=== PATIENT | female | born 1960 | race Caucasian/White ===

== ENCOUNTER 2019-05-09 09:55 | Outpatient (CLI) | payer MEDICARE, SELFPAY ==
[2019-05-09 10:53] LABS: Hemoglobin A1C 6.2 % (<5.7)
== END 2019-05-09 09:56 | disposition home or self-care (01) ==
LOC: CHSLAB 09:59
PROVIDERS: PCP Family Medicine; Visit Provider Family Medicine
DX: E11.9 Type 2 diabetes mellitus without complications (principal)
CPT/HCPCS: 36415; 83036

== ENCOUNTER 2020-07-04 11:05 | Outpatient (CLI) | payer MEDICARE, SELFPAY ==
[2020-07-04 11:20] LABS: Hematocrit 43.1 % (35.0-49.0); Hemoglobin 14.6 g/dL (12.0-15.0); Mean Corpuscular HGB Conc 33.9 g/dL (32.0-36.0); Mean Corpuscular Hemoglobin 33.1 pg (27.0-31.0); Mean Corpuscular Volume 97.7 fL (78.0-102.0); Mean Platelet Volume 9.1 fl (9.2-11.8); Platelet Count Result 262 K/mm3 (150-420); Red Blood Count 4.41 M/mm3 (4.20-5.40); Red Cell Distribution Width 13.4 % (11.6-14.4); White Blood Count 6.7 K/mm3 (4.8-10.8)
[2020-07-04 11:34] LABS: Creatinine Urine 60.19 mg/dL (40-278); MALB Creatinine Ratio 21.5 mg/g (0-30); Microalbumin Urine Random < 13.0 mg/L
[2020-07-04 12:37] LABS: Alanine Aminotransferase 34 U/L (14-59); Albumin Level 3.4 g/dL (3.4-5.0); Alkaline Phosphatase 77 U/L (46-116); Anion Gap 6 mmol/L (8-16); Aspartate Amino Transferase 19 U/L (15-37); Bilirubin,Total 0.4 mg/dL (0.00-1.00); Blood Urea Nitrogen 13 mg/dL (7-18); Calcium 9.2 mg/dL (8.5-10.1); Carbon Dioxide 32 mmol/L (21-32); Chloride 102 mmol/L (98-108); Cholesterol 182 mg/dL (0-200); Estimated Glomerular Filt Rate > 60; Glucose 123 mg/dL (70-99); HDL Direct 45 mg/dL (40-60); LDL Cholesterol Calculated 63 mg/dL (<130); Osmolality Calculated 291 mOsm/kg (285-295); Potassium 4.1 mmol/L (3.5-5.1); Sodium 140 mmol/L (136-145); Total Protein 6.8 g/dL (6.4-8.2); Triglycerides 370 mg/dL (0-150)
== END 2020-07-04 11:06 | disposition home or self-care (01) ==
LOC: CHSLAB 11:11
PROVIDERS: PCP Family Medicine; Visit Provider Family Medicine
DX: E11.9 Type 2 diabetes mellitus without complications (principal)
CPT/HCPCS: 36415; 80053; 80061; 82043; 83036; 85027

== ENCOUNTER 2021-01-08 11:19 | Outpatient (CLI) | payer MEDICARE, SELFPAY ==
--- NOTE | ~2021-01-08 | XR_ITS ---
EXAMINATION: XR humerus RT INDICATION: Right arm pain TECHNIQUE: Two views of the right humerus are obtained. COMPARISON: None available FINDINGS: There appears to be marked soft tissue swelling of the lateral arm (unclear if this is asym metric compared to the left). Bone alignment is normal. There is no fracture. There is advanced osteo arthritis of the acromioclavicular joint. The elbow appears normal. IMPRESSION: 1. Possible soft tissue swelling of the lateral arm (recommend comparison to the left) without acute osseous abnormality. Reviewed, dictated and finalized at location B. COMPILER IMPRESSION: 1. Possible soft tissue swelling of the lateral arm (recommend comparison to th e left) without acute osseous abnormality.
[2021-01-08 11:37] LABS: Basophils Absolute Auto 0.03 K/mm3 (0.00-0.10); Basophils Percent Auto 0.4 % (0.0-1.0); Eosinophils Absolute Auto 0.43 K/mm3 (0.02-0.50); Eosinophils Percent Auto 5.8 % (1.0-6.0); Hematocrit 45.6 % (35.0-49.0); Hemoglobin 15.8 g/dL (12.0-15.0); Immature Granulocyte Absolute 0.02 K/mm3 (0.00-0.00); Immature Granulocyte Percent A 0.3 % (0.0-0.0); Lymphocytes Percent Auto 29.7 % (18.0-42.0); Mean Corpuscular HGB Conc 34.6 g/dL (32.0-36.0); Mean Corpuscular Hemoglobin 33.3 pg (27.0-31.0); Mean Corpuscular Volume 96.2 fL (78.0-102.0); Monocytes Absolute Auto 0.49 K/mm3 (0.10-0.90); Monocytes Percent Auto 6.6 % (2.0-11.0); Neutrophils Absolute Auto 4.2 K/mm3 (1.7-7.2); Neutrophils Percent Auto 57.2 % (50.0-70.0); Platelet Count Result 302 K/mm3 (150-420); Red Blood Count 4.74 M/mm3 (4.20-5.40); Red Cell Distribution Width 12.9 % (11.6-14.4); White Blood Count 7.4 K/mm3 (4.8-10.8)
[2021-01-08 11:47] LABS: Hemoglobin A1C 6.4 % (<5.7)
[2021-01-08 12:06] LABS: Alanine Aminotransferase 30 U/L (14-59); Albumin Level 3.7 g/dL (3.4-5.0); Alkaline Phosphatase 86 U/L (46-116); Anion Gap 10 mmol/L (8-16); Aspartate Amino Transferase 20 U/L (15-37); Bilirubin,Total 0.4 mg/dL (0.00-1.00); Blood Urea Nitrogen 14 mg/dL (7-18); Calcium 9.6 mg/dL (8.5-10.1); Carbon Dioxide 28 mmol/L (21-32); Chloride 103 mmol/L (98-108); Estimated Glomerular Filt Rate > 60; Glucose 137 mg/dL (70-99); Osmolality Calculated 294 mOsm/kg (285-295); Potassium 3.8 mmol/L (3.5-5.1); Sodium 141 mmol/L (136-145); Total Protein 7.2 g/dL (6.4-8.2)
[2021-01-13 03:31] LABS: Vitamin D 25 Hydroxy 20 ng/mL (30-100)
== END 2021-01-08 11:20 | disposition home or self-care (01) ==
LOC: CHSIMG 11:26
PROVIDERS: PCP Family Medicine; Visit Provider Nurse Practitioner Family
DX: E55.9 Vitamin D deficiency, unspecified (principal); M79.601 Pain in right arm; E11.9 Type 2 diabetes mellitus without complications
CPT/HCPCS: 36415; 73060; 80053; 82306; 83036; 85025

== ENCOUNTER 2021-11-03 12:20 | Emergency (ER) | payer MEDICARE, SELFPAY ==
[2021-11-03 12:20] VITALS: BP 101/62; PULSE 102; RESP 16; TEMP 36.6; O2SAT 94
--- NOTE | 2021-11-03 12:37 | ED.GENADULT ---
HPI - General Adult General Chief complaint: Skin/Abscess/Foreign Body Stated complaint: Spider bite Time Seen by Provider: 11/03/21 12:27 History of Present Illness HPI narrative: Bernie presented to the ER after a spider bite last night. She pulled her shorts up and felt a painful pinch on her inner thigh. Now it has had increasing pain and erythema. She also itches all over and feels flushed. There is no SOB, wheezing, or chest pain. Related Data Home Medications Medication Instructions Recorded Confirmed olopatadine 0.7 % eye drops (Pazeo) 1 drop ophthalmic (eye) DAILY 05/09/19 11/03/21 Allergies Allergy/AdvReac Type Severity Reaction Status Date / Time aspirin Allergy Intermediate hives Verified 11/03/21 12:31 bupropion [Wellbutrin] Allergy Intermediate anxiety Verified 11/03/21 12:31 NSAIDS (Non-Steroidal AdvReac Unknown Unknown Verified 11/03/21 12:31 Anti-Inflamma Review of Systems Review of Systems: All systems reviewed & are unremarkable except as noted in HPI and below PMFSH Past Medical History Medical History (Updated 11/03/21 @ 12:43 by Chandler Downey DO) Allergic rhinitis Depression DM2 (diabetes mellitus, type 2) GERD (gastroesophageal reflux disease) Hyperlipidemia Hypertension Nicotine dependence Osteoarthritis Overweight Vitamin D deficiency Surgical History Surgical History History of adenoidectomy History of bariatric surgery Gastric Sleeve 2014 History of carpal tunnel surgery History of cholecystectomy History of hysterectomy History of left knee replacement Hx of tonsillectomy Family History Family History Other Cerebrovascular accident Depression Diabetes mellitus Family history of arthritis Family history of malignant neoplasm Hypertension Social History Social History Smoking packs per day: 0.5 Smoking cigarettes per day: 10.0 Years smoked: 30 Smoking pack-years: 15.00 Smoking status: Current every day smoker Tobacco type: cigarettes Smoking end date: 03/01/13 Exam Const: General: healthy appearing, no acute distress and alert Nutritional Appearance: well nourished Orientation/consciousness: patient oriented x3 Limitations: no limitations HENMT: Head: normal to inspection Ears: external ears normal Other: Moist mucous membranes, no swelling. Eyes: Conjunctivae: conjunctivae normal Pupils: Equal, round and reactive pupils present Neck: Neck: normal visual inspection Chest: Chest palpation & inspection: normal inspection of the chest Resp: Effort & Inspection: normal respiratory effort Auscultation: clear to auscultation bilaterally Cardio: Rate: regular rate Skin: Other: Left inner thigh had erythematous area 4cm in diameter with a black center that was warm and TTP Extrem: General: normal to inspection Psych: Mental Status: mental status grossly normal Course Course Emergency Course: given ceftriaxone and benadryl Vital Signs Vital signs: Vital Signs Temperature 97.9 F 11/03/21 12:20 Pulse Rate 102 H 11/03/21 12:20 Respiratory Rate 16 11/03/21 12:20 Blood Pressure 101/62 11/03/21 12:20 Pulse Oximetry 94 11/03/21 12:20 Oxygen Delivery Room Air 11/03/21 12:20 Temperature 97.9 F 11/03/21 12:20 Pulse Rate 102 H 11/03/21 12:20 Respiratory Rate 16 11/03/21 12:20 Blood Pressure 101/62 11/03/21 12:20 Pulse Oximetry 94 11/03/21 12:20 Oxygen Delivery Room Air 11/03/21 12:20 Medical Decision Making Vital Signs Vital Signs: Vital Signs Temperature 97.9 F 11/03/21 12:20 Pulse Rate 102 H 11/03/21 12:20 Respiratory Rate 16 11/03/21 12:20 Blood Pressure 101/62 11/03/21 12:20 Pulse Oximetry 94 11/03/21 12:20 Oxygen Delivery Room Air 11/03/21 12:20 Temperature 97.9 F
[2021-11-03] MEDS: diphenhydrAMINE HCl CAP 25 MG CAPSULE PO (12:47)
[2021-11-03] MEDS: cefTRIAXone 1 GM, LIDOCAINE HCL 1% LOCAL INJ 2.1 ML IM (12:47)
[2021-11-03 13:00] VITALS: PULSE 102; RESP 16; O2SAT 94
== END 2021-11-03 13:00 | disposition home or self-care (01) ==
PROVIDERS: Emergency Provider Family Medicine; PCP Family Medicine
DX: T63.301A Toxic effect of unspecified spider venom, accidental (unintentional), initial encounter (principal); L03.116 Cellulitis of left lower limb
CPT/HCPCS: 96372; 99283; A9270; J0696

== ENCOUNTER 2021-12-18 12:35 | Outpatient (CLI) | payer MEDICARE, MEDICAID, SELFPAY ==
--- NOTE | ~2021-12-18 | MM_ITS ---
EXAMINATION: MM screening [facility] BI w adrian HISTORY: Screening TECHNIQUE: Craniocaudal and mediolateral oblique 3-D tomosynthesis images were obtained and synthetic 2-D images were generated. CAD analysis was submitted and interpreted. COMPARISON: No prior mammogram is available for comparison at this institution. BREAST PARENCHYMAL COMPOSITION: Breast composed of scattered areas of fibroglandular density FINDINGS: There are bilateral clusters of indeterminate calcifications in the upper outer quadrant of the breasts. There is a mass in the upper outer quadrant of the right breast anteriorly measuring 12 mm. IMPRESSION: 1. Right breast mass, upper outer quadrant anteriorly. Bilateral indeterminate clustered calcificatio ns. 2. Recommend comparison to previous outside mammograms. BI-RADS Category 0: Incomplete: Needs additional imaging evaluation. Reviewed, dictated and finalized at location A. IMPRESSION: 1. Right breast mass, upper outer quadrant anteriorly. Bilateral indeterminate clustered calcifications. 2. Recommend comparison to previous outside mammograms. BI-RADS Category 0: Incomplete: Needs additional imaging evaluation.
--- NOTE | ~2021-12-18 | CT_ITS ---
EXAMINATION: CT lung screening DATE: 12/18/2021 13:07 INDICATION: Personal history of nicotine dependence, current smoker with 39 pack year history TECHNIQUE: Computed tomography (CT) of the chest was performed without intravenous contrast. The dose -length product (DLP) was 400.56 mGy-cm. Automated exposure control and iterative reconstruction tech [employer] were employed. COMPARISON: None FINDINGS: There is mild emphysema. Calcified pulmonary nodules and calcified right hilar and mediasti nal lymph nodes are consistent with old granulomatous disease. The lungs are free of acute opacities. No pleural effusion or pneumothorax. No pathologically enlarged thoracic lymph nodes are identified. The heart size is normal. Calcified coronary artery atherosclerosis is noted. There are surgical waldemar nges in the stomach. The gallbladder is surgically absent. Punctate calcifications in an otherwise no rmal spleen likely represent healed granulomatous disease. There are bridging osteophytes at multiple levels in the spine, consistent with diffuse idiopathic skeletal hyperostosis (DISH). IMPRESSION: 1. Lung-RADS category 1: Negative. Continue annual screening with noncontrast low-dose chest CT in 12 months. Reviewed, dictated and finalized at location B. IMPRESSION: 1. Lung-RADS category 1: Negative. Continue annual screening with noncontrast l ow-dose chest CT in 12 months.
== END 2021-12-18 12:36 | disposition home or self-care (01) ==
LOC: CHSIMG 12:38
PROVIDERS: PCP Family Medicine; Visit Provider Registered Nurse
DX: F17.210 Nicotine dependence, cigarettes, uncomplicated (principal); Z12.31 Encounter for screening mammogram for malignant neoplasm of breast
CPT/HCPCS: 71271; 77063; 77067

== ENCOUNTER 2022-01-01 08:48 | Outpatient (CLI) | payer MEDICARE, MEDICAID, SELFPAY ==
--- NOTE | ~2022-01-01 | MM_ITS ---
EXAMINATION: MM diagnostic faby RT w adrian HISTORY: Follow-up right breast calcifications TECHNIQUE: Additional 3-D tomosynthesis images of the right breast were performed and synthetic 2-D i mages were generated. CAD analysis was submitted and interpreted. COMPARISON: 12/18/2021 BREAST PARENCHYMAL COMPOSITION: Breast composed of scattered areas of fibroglandular density FINDINGS: There are clustered pleomorphic calcifications in the lower outer quadrant of the right yadiel ast posteriorly. Recommend stereotactic biopsy. There are scattered additional benign appearing calci fications of the right breast. No suspicious masses or architectural distortion. IMPRESSION: 1. Clustered pleomorphic calcifications, lower outer quadrant posteriorly. 2. Stereotactic right breast biopsy recommended. BI-RADS category 4, suspicious findings. Reviewed, dictated and finalized at location A.
== END 2022-01-01 08:49 | disposition home or self-care (01) ==
LOC: CHSIMG 08:49
PROVIDERS: PCP Family Medicine; Visit Provider Family Medicine
DX: R92.8 Other abnormal and inconclusive findings on diagnostic imaging of breast (principal)
CPT/HCPCS: 77061; 77065; G0279

== ENCOUNTER 2022-04-30 15:16 | Outpatient (CLI) | payer MEDICARE, MEDICAID, SELFPAY ==
--- NOTE | ~2022-04-30 | XR_ITS ---
XR lumbar spine 2-3V 04/30/2022 15:41 Indication: Back pain Procedure: 4 views lumbar spine Comparison: No prior studies for comparison. Findings: There is disc narrowing at all lumbar levels. There is facet hypertrophy at L3-4 through L5 -S1. There is grade 1 degenerative spondylolisthesis at L4-5. No acute fracture or traumatic malalign ment. There is osteoarthritis of the hips. There are cholecystectomy clips. Impression: 1: Severe lumbar spondylosis with grade 1 spondylolisthesis at L4-5. Reviewed, dictated and finalized at location L. ATIENT PHLEBOTOMIST Impression: 1: Severe lumbar spondylosis with grade 1 spondylolisthesis at L4-5.
== END 2022-04-30 15:17 | disposition home or self-care (01) ==
LOC: CHSIMG 15:18
PROVIDERS: PCP Family Medicine; Visit Provider Family Medicine
DX: M54.10 Radiculopathy, site unspecified (principal); M43.06 Spondylolysis, lumbar region
CPT/HCPCS: 72100